=== PATIENT | female | born 1980 | race African-American/Black ===

== ENCOUNTER 2016-07-07 17:57 | Emergency (ER) | payer OTHER ==
[2016-07-07 18:05] VITALS: TEMP 98.3; BMI 24.0
--- NOTE | 2016-07-07 19:41 | PDOC ---
History of Present Illness - General History Source: Patient, Old Records Exam Limitations: No Limitations - History of Present Illness Initial Comments: 07/07/16 20:06 The patient is a 35 year old female (; currently approximately 10 weeks ), with no significant past medical history, who presents to the emergency department with increased vaginal bleeding since yesterday. The patient additionally reports some associated mild lower abdominal cramping. The patient does report sexual intercourse last night but reports that she first noticed the vaginal bleeding yesterday morning, which was before any activity. The patient denies the presence of any blood clots. The patient denies fever, chills, nausea, vomiting, diarrhea or dysuria. The patient denies back pain. LMP: 04/30/2016. Allergies: None reported. Past Surgical History: None reported. Social History: Non smoker. Denies alcohol or drug use. PCP: Dr. Cedric Vidal [facility]: ATTILA Chicas <Pooja Ray - Last Filed: 07/07/16 23:40> <Roberth Morris - Last Filed: 07/08/16 03:09> - General Chief Complaint: Vaginal Bleeding Stated Complaint: VAGINAL BLEEDING/10 WKS Time Seen by Provider: 07/07/16 19:41 Past History <Pooja Ray - Last Filed: 07/07/16 23:40> - Past Medical History Asthma: No Cancer: No Cardiac Disorders: No Diabetes: No HTN: No Seizures: No Thyroid Disease: No Other medical history: PATIENT DENIES MEDICAL HISTORY - Psycho/Social/Smoking Cessation Hx Suicidal Ideation: No Smoking History: Never smoked Have you smoked in the past 12 months: No Hx Alcohol Use: No Drug/Substance Use Hx: No Hx Substance Use Treatment: No <Roberth Morris - Last Filed: 07/08/16 03:09> - Past Medical History Allergies/Adverse Reactions: Allergies Allergy/AdvReac Type Severity Reaction Status Date / Time No Known Allergies Allergy Verified 07/07/16 18:04 Home Medications: Ambulatory Orders Vit/Iron Fumarate/FA [ Tablet] 1 each PO DAILY 11/30/14 Acetaminophen [Tylenol .Regular Strength -] 325 mg PO Q3H PRN #2 tablet Cephalexin [Keflex] 500 mg PO BID #14 capsule 07/07/16 Clindamycin [Cleocin -] 300 mg PO BID #14 capsule 07/07/16 Review of Systems - Review of Systems Able to Perform ROS?: Yes Comments:: 07/07/16 20:01 CONSTITUTIONAL: No fever, no chills, no fatigue EYES: No visual changes ENT: No ear pain, no sore throat CARDIOVASCULAR: No chest pain, no palpitations RESPIRATORY: No cough, no SOB GI: +Abdominal cramping. No nausea, no vomiting, no constipation, no diarrhea GENITOURINARY: +Vaginal bleeding. No dysuria, no frequency, no hematuria MUSKULOSKELETAL: No back pain, no joint pain, no myalgias SKIN: No rash NEURO: No headache <Pooja Ray - Last Filed: 07/07/16 23:40> *Physical Exam - Vital Signs Last Vital Signs Temp Pulse Resp BP Pulse Ox 98.3 F 96 H 16 108/59 98 07/07/16 18:02 07/07/16 18:02 07/07/16 18:02 07/07/16 18:02 07/07/16 18:02 - Physical Exam Comments: 07/07/16 20:10 CONSTITUTIONAL: Well-appearing; well-nourished; in no apparent distress. HEAD: Normocephalic; atraumatic. EYES: PERRL; EOM intact. ENMT: External appears normal; normal oropharynx. NECK: Supple; non-tender; no cervical lymphadenopathy. CARD: Normal S1, S2; no murmurs, rubs, or gallops. RESP: Normal chest excursion with respiration; breath sounds clear and equal bilaterally; no wheezes, rhonchi, or rales. ABD: Soft, non-distended; non-tender; no palpable organomegaly, no palpable hernias. EXT: Normal ROM in all four extremities; non-tender to palpation; distal pulses intact. SKIN: Warm, dry, no rash. NEURO: No focal neurological deficiencies. PELVIC EXAM: (chaperoned by PHYLICIA Sy) No external lesions. There is a small amount of coagulated blood in the vault. There is a small amount of malodorous vaginal discharge. Cervical os is closed. No cervical motion tenderness. <Pooja Ray - Last Filed: 07/07/16 23:40> - Vital Signs Last Vital Signs Temp Pulse Resp BP Pulse Ox 98.3 F 96 H 16 108/59 98 07/07/16 18:02 07/07/16 18:02 07/07/16 18:02 07/07/16 18:02 07/07/16 18:02 <Roberth Morris - Last Filed: 07/08/16 03:09> ED Treatment Course - LABORATORY CBC & Chemistry Diagram: 07/07/16 19:38 07/07/16 19:38 <Pooja Ray - Last Filed: 07/07/16 23:40> - LABORATORY CBC & Chemistry Diagram: 07/07/16 19:38 07/07/16 19:38 <Roberth Morris - Last Filed: 07/08/16 03:09> Medical Decision Making - Medical Decision Making 07/07/16 23:13 EXAM: US/ <14 WEEKS US Reviewed By: Dr. Pool Rust IMPRESSION: Single viable intrauterine gestation at approximately 9 weeks 1 day. 3.5 cm left ovarian cyst. <Pooja Ray - Last Filed: 07/07/16 23:40> - Medical Decision Making 07/08/16 03:08 Patient is a 35-year-old female, 3 para 2, at approximately 10 weeks gestation, who presents with mild vaginal spotting postcoitally and foul vaginal discharge. Transvaginal ultrasound reveals an IUP at 9 weeks and 2 days with FH of 169. Urinalysis reveals pyuria. I suspect UTI with concurrent bacterial vaginosis. Will treat with Keflex and clindamycin given high risk of miscarriage associated with untreated infection. No rhogam is indicated as patient is Rh+. Will discharge with [facility] follow-up as scheduled. <Roberth Morris - Last Filed: 07/08/16 03:09> *DC/Admit/Observation/Transfer - Attestations Scribe Attestion: 07/07/16 19:42 Documentation prepared by Pooja Ray, acting as remote medical coder for Roberth Morris MD. <Pooja Ray - Last Filed: 07/07/16 23:40> - Attestations Physician Attestion: 04/14/17 03:08 The documentation was prepared by the scribe under my direct supervision. I have reviewed the documentation which correctly represents the findings, medical decision-making and critical action taken by me. <Roberth Morris - Last Filed: 07/08/16 03:09> Diagnosis at time of Disposition: Threatened , Bacterial vaginosis Urinary tract infection Qualifiers: Urinary tract infection type: acute cystitis Hematuria presence: without hematuria Qualified Code(s): N30.00 - Acute cystitis without hematuria - Discharge Dispostion Disposition: HOME Condition at time of disposition: Stable - Prescriptions Prescriptions: Clindamycin [Cleocin -] 300 mg PO BID #14 capsule Cephalexin [Keflex] 500 mg PO BID #14 capsule - Referrals Referrals: Cedric Vidal [Primary Care Provider] - - Patient Instructions Printed Discharge Instructions: DI for Threatened , DI for Bacterial Vaginosis, DI for Urinary Tract Infection (UTI)
[2016-07-07 19:49] LABS: URINE APPEARANCE TURBID; URINE BILIRUBIN NEGATIVE (NEGATIVE); URINE COLOR YELLOW; URINE GLUCOSE (UA) NEGATIVE (NEGATIVE); URINE KETONE NEGATIVE (NEGATIVE); URINE LEUK ESTERASE NEGATIVE (NEGATIVE); URINE NITRITE NEGATIVE (NEGATIVE); URINE PROTEIN NEGATIVE (NEGATIVE); URINE UROBILINOGEN NEGATIVE E.U./dl (0.2-1.0)
[2016-07-07 19:53] LABS: BASOPHIL 0.5 % (0-2.0); EOSINOPHIL 2.3 % (0-4.5); MCH 28.3 pg (25.7-33.7); MCHC 33.7 g/dl (32.0-36.0); MEAN PLT VOLUME 9.6 fl (7.5-11.1); NEUTROPHILS 48.5 % (42.8-82.8); PLATELET COUNT 206 K/MM3 (134-434); RDW 14.2 % (11.6-15.6)
[2016-07-07 20:00] LABS: URINE BLOOD 1+ (NEGATIVE)
[2016-07-07 20:02] LABS: URINE BACTERIA RARE /hpf (NONE SEEN); URINE RBC 8 /hpf (0-3); URINE WBC 27 /hpf (3-5); YEAST MODERATE
[2016-07-07 20:28] LABS: ALBUMIN 3.8 g/dl (3.4-5.0); ANION GAP 6 (8-16); BILIRUBIN,TOTAL 0.3 mg/dL (0.2-1.0); CALCIUM 8.6 mg/dL (8.5-10.1); CO2 30 mmol/L (21-32); CREATININE 0.8 mg/dL (0.55-1.02); GLUCOSE,RANDOM 83 mg/dL (74-106); SGOT/AST 23 U/L (15-37); SGPT/ALT 27 U/L (12-78); TOT PROT 8.3 g/dl (6.4-8.2)
[2016-07-07 20:43] LABS: ALK PHOS 50 U/L (45-117)
[2016-07-07 21:31] LABS: PLATELET ESTIMATE ADEQUATE (NORMAL)
[2016-07-07 23:45] VITALS: BP 112/74; PULSE 91
== END 2016-07-07 23:45 | disposition home or self-care (01) ==
LOC: JER 17:57
DX: O20.0 Threatened abortion (principal); O23.591 Infection of other part of genital tract in pregnancy, first trimester; N76.0 Acute vaginitis; B96.89 Other specified bacterial agents as the cause of diseases classified elsewhere; O23.11 Infections of bladder in pregnancy, first trimester; N30.00 Acute cystitis without hematuria; Z3A.09 9 weeks gestation of pregnancy
CPT/HCPCS: 36415; 76801-TC; 80053; 81003; 81015; 84702; 85025; 86850; 86900; 86901; 87086; 87491; 87591; 99283-25

== ENCOUNTER → 2023-04-12 | Day surgery (SDC) | payer OTHER | END | disposition home or self-care (01) | LOC: JMAMMO-SUR 09:41 | PROVIDERS: ATTEND Internal Medicine | PROC: 07D63ZX Extraction of Left Axillary Lymphatic, Percutaneous Approach, Diagnostic (ICD-10-PCS; principal; 2023-04-12) | DX: R59.0 Localized enlarged lymph nodes (principal) | CPT/HCPCS: 19083; 87899; A4648 ==